=== PATIENT | female | born 1950 | race Two or more races ===

== ENCOUNTER 2024-11-06 14:26 | Inpatient (IN) | payer OTHER, MEDICAID ==
[~2024-11-06] VITALS: Ht 157.5 cm; Wt 75.2 kg
--- NOTE | 2024-11-06 14:54 | ED.PDOC ---
History of Present Illness HPI Comments 74 y.o female presents to the ED for a chief complaint of generalized weakness associated with dizziness and palpitation that started after running out of her HTN medication 1.5 months ago. Patient reports pressure has been low in the 90's systolic and states she has not been able to get an appointment with her PCP to refill nor discuss her symptoms. Patient denies any chest pain, fever, chills, leg swelling, nausea, vomiting, back pain. Time Seen by MD: 14:39 Reviewed Notes: Nurses Notes, Medications, Allergies Allergies: Coded Allergies: NO KNOWN ALLERGIES (Unverified , 11/06/24) Information Source: Patient Mode of Arrival: Ambulatory Severity: Moderate Timing: Months Duration: Since onset Medication Refill: Ran out of Medication, For: Hypertension Past Medical History PAST MEDICAL HISTORY: HTN Surgical History: Denies all surgeries COMPLAINT EVALUATION OFFICER History: No Pertinent COMPLAINT EVALUATION OFFICER History Family History Family History: Reviewed,noncontributory to illness Social History Smoker: Non-Smoker Alcohol: Denies ETOH Use Drugs: Denies Drug Use Lives In: Home Constitutional: reports: weakness; denies: chills, diaphoresis, fatigue, fever, malaise, sweats, others EENTM: denies: blurred vision, double vision, ear bleeding, ear discharge, ear drainage, ear pain, ear ringing, eye pain, eye redness, hearing loss, mouth pain, mouth swelling, nasal discharge, nose bleeding, nose congestion, nose pain, photophobia, tearing, throat pain, throat swelling, voice changes, others Respiratory: denies: cough, hemoptysis, orthopnea, SOB at rest, shortness of breath, SOB with excertion, stridor, wheezing, others Cardiovascular: reports: palpitations; denies: chest pain, dizzy spells, diaphoresis, Dyspnea on exertion, edema, irregular heart beat, left arm pain, lightheadedness, PND, syncope, others Gastrointestinal: denies: abdomen distended, abdominal pain, blood streaked bowels, constipated, diarrhea, dysphagia, difficulty swallowing, hematemesis, melena, nausea, poor appetite, poor fluid intake, rectal bleeding, rectal pain, vomiting, others Genitourinary: denies: abnormal vagina bleeding, burning, dyspareunia, dysuria, flank pain, frequency, hematuria, incontinence, pain, , vagina discharge, urgency, others Neurological: reports: dizziness; denies: fainting, headache, left sided numbness, left sided weakness, numbness, paresthesia, pre-existing deficit, rig ht sided numbness, right sided weakness, seizure, speech problems, tingling, tremors, weakness, others Musculoskeletal: denies: back pain, gout, joint pain, joint swelling, muscle pain, muscle stiffness, neck pain, others Integumetry: denies: bruises, change in color, change in hair/nails, dryness, laceration, lesions, lumps, rash, wounds, others Allergic/Immunocompromised: denies: Difficulty Healing, Frequent Infections, Hives, Itching, others Hematologic/Lymphatic: denies: anemia, blood clots, easy bleeding, easy bruising, swollen glands, others Endocrine: denies: excessive hunger, excessive sweating, excessive thirst, excessive urination, flushing, intolerance to cold, intolerance to heat, unexplained weight gain, unexplained weight loss, others Psychiatric: denies: anxiety, bipolar disorder, depression, hopeless, panic disorder, schizophrenia, sleepless, suicidal, others All Other Systems: Reviewed and Negative Physical Exam General Appearance: Moderate Distress HEENT: Normal ENT Inspection, Pharynx Normal, TMs Normal Neck: Full Range of Motion, Non-Tender, Normal, Normal Inspection Respiratory: Chest Non-Tender, Lungs Clear, No Accessory Muscle Use, No Respiratory Distress, Normal Breath Sounds Cardiovascular: No Edema, No JVD, No Murmur, No Gallop, Normal Peripheral Pulses, Regular Rate/Rhythm Breast Exam: Deferred Gastrointestinal: No Organomegaly, Non Tender, No Pulsatile Mass, Normal Bowel Sounds, Soft Genitalia: Deferred Pelvic: Deferred Rectal: Deferred Extremities: No calf tenderness, Normal capillary refill, Normal inspection, Normal range of motion, Non-tender, No pedal edema Musculoskeletal : Apperance: Normal Neurologic: Alert, vascular tech II-XII nml as Tested, No Motor Deficits, Normal Affect, Normal Mood, No Sensory Deficits Cerebellar Function: NOT DONE Reflexes: NOT DONE Skin: Dry, Normal Color, Warm Peripheral Pulses: 3+ Radial (R), 3+ Radial (L) Lymphatic: No Adenopathy Was a procedure done? Was a procedure done?: No EKG EKG : ST: Inf Differential Dx Considerations may include: Dehydration, Electrolyte Imbalance, Viral syndrome, Hypotension, Sinus tachycardia, New onset AFIB X-Ray, Labs, Meds, VS Vital Signs Date Time Temp Pulse Resp B/P (MAP) Pulse Ox O2 Delivery O2 Flow Rate FiO2 11/06/24 15:46 98.2 63 16 113/65 (81) 95 98.2 11/06/24 15:20 66 Lab Test 11/06/24 16:01 11/06/24 14:57 Range/Units White Blood Count 7.2 4.4-10.8 10^3/uL Red Blood Count 4.41 4.0-5.20 10^6/uL Hemoglobin 13.1 12.2-16.2 g/dL Hematocrit 39.9 36.0-46.0 % Mean Corpuscular Volume 90.4 80.0-100.0 fL Mean Corpuscular Hemoglobin 29.7 28.0-32.0 pg Mean Corpuscular Hemoglobin Concent 32.9 32.0-36.0 g/dL Red Cell Distribution Width 14.2 11.8-14.3 % Platelet Count 247 140-450 10^3/uL Mean Platelet Volume 8.2 6.9-10.8 fL Neutrophils (%) (Auto) 58.1 37.0-80.0 % Lymphocytes (%) (Auto) 29.7 10.0-50.0 % Monocytes (%) (Auto) 8.5 0.0-12.0 % Eosinophils (%) (Auto) 2.9 0.0-7.0 % Basophils (%) (Auto) 0.8 0.0-2.0 % Neutrophils # (Auto) 4.2 1.6-8.6 10 ^3/uL Lymphocytes # (Auto) 2.1 0.4-5.4 10 ^3/uL Monocytes # (Auto) 0.6 0-1.3 10 ^3/uL Eosinophils # (Auto) 0.2 0-0.8 10 ^3/uL Basophils # (Auto) 0.1 0-0.2 10 ^3/uL Nucleated Red Blood Cells 0.0 % Sodium Level Pending Potassium Level Pending Chloride Level Pending Carbon Dioxide Level Pending Anion Gap Pending Blood Urea Nitrogen Pending Creatinine Pending Glomerular Filtration Rate Calc Pending BUN/Creatinine Ratio Pending Serum Glucose Pending Calcium Level Pending Troponin I High Sensitivity Pending 36 *H </=34 ng/L Patient alert. Complaining of chest pain generalized weakness. Cardiac marker slightly elevated. Vitals stable. EKG does show minor changes. Echocardiogram. Cardiology consultation. She has risk factors for coronary artery disease. Was given aspirin. Was given nitro. Was given morphine. Was given Zofran. [facility] approved inpatient admission [id number]. Time of 1ST Reevaluation: 15:01 Reevaluation 1ST: Unchanged Patient Education/Counseling: Diagnosis, Treatment, Prognosis Family Education/Counseling: No Family Present Departure 1 Departure Time of Disposition: 16:21 Impression: Primary Impression: Chest pain of unknown etiology Disposition: ADMITTED INPATIENT Admit to: Med Surg Condition: Guarded Critical Care Note Critical Care Time?: No Stability Stability form required: No Heart Score Heart Score: Heart Score Response (Comments) Value History Slightly Suspicious 0 EKG Normal 0 Age >65 2 Risk Factors >3 or Hx ASHD 2 Troponin 1-2 x's Normal limit 1 Total 5 I personally scribed for JENY CUNHA MD ([email or web address]) on 11/06/24 at 14:54. Electronically submitted by Leah Medrano ([facility]). JENY CUNHA MD Nov 06, 2024 14:54
[2024-11-06 16:17] LABS: Basophils # (auto) 0.1 10 ^3/uL (0-0.2); Basophils % (auto) 0.8 % (0.0-2.0); Eosinophils # (auto) 0.2 10 ^3/uL (0-0.8); Eosinophils % (auto) 2.9 % (0.0-7.0); Hematocrit 39.9 % (36.0-46.0); Hemoglobin 13.1 g/dL (12.2-16.2); Lymphocytes # (auto) 2.1 10 ^3/uL (0.4-5.4); Lymphocytes % (auto) 29.7 % (10.0-50.0); Mean Corpuscular Hemoglobin 29.7 pg (28.0-32.0); Mean Corpuscular Hgb Conc. 32.9 g/dL (32.0-36.0); Mean Corpuscular Volume 90.4 fL (80.0-100.0); Monocytes # (auto) 0.6 10 ^3/uL (0-1.3); Monocytes % (auto) 8.5 % (0.0-12.0); Neutrophils # (auto) 4.2 10 ^3/uL (1.6-8.6); Neutrophils % (auto) 58.1 % (37.0-80.0); Platelet Count (auto) 247 10^3/uL (140-450); Red Blood Cells 4.41 10^6/uL (4.0-5.20); Red Cell Distribution Width 14.2 % (11.8-14.3); White Blood Cell 7.2 10^3/uL (4.4-10.8)
[2024-11-06 16:26] LABS: Chloride 107 mmol/L (98-107); Potassium 3.9 mmol/L (3.5-5.1); Sodium 143 mmol/L (136-145)
[2024-11-06 16:27] LABS: Anion Gap 7 (5-15); Carbon Dioxide 29 mmol/L (20-31)
[2024-11-06 16:32] LABS: BUN/Creatinine Ratio 15.8 (10.0-20.0); Blood Urea Nitrogen 16 mg/dL (9-23); Glucose 95 mg/dL (74-106)
[2024-11-06 16:35] LABS: Calcium 11.4 mg/dL (8.7-10.4)
[2024-11-06 17:44] LABS: Urine Bacteria None Seen /hpf (None Seen)
[2024-11-06] MEDS: ASPirin 325 MG TAB PO ONE (17:56)
[2024-11-06] MEDS: NITROGLYCERIN 0.4 MG SL TAB SL ONE (17:56)
[2024-11-06] MEDS: ONDANSETRON HCL 4 MG/2 ML VIAL IV ONE (17:57)
[2024-11-06] MEDS: MORPHINE SULFATE INJ 2 MG/ml SYRG IV ONE (17:57)
[2024-11-06 18:14] LABS: Urine Blood 1+ /uL (Negative); Urine Clarity Clear (Clear); Urine Color Yellow (Yellow); Urine Mucus FEW (None Seen); Urine Protein, UAD Negative (Negative); Urine Specific Gravity 1.027 (1.001-1.035); Urine Squamous Epithelial Cell FEW /hpf (<5); Urine Urobilinogen Normal (Negative); Urine WBC 32 /HPF (0-5); Urine pH 5.5 (5.0-9.0)
[2024-11-06] MEDS ORDERED: DOCUSATE SOD 100 MG CAP PO PRN (22:15)
[2024-11-06] MEDS ORDERED: HYDROcodone-ACET 5/325MG TAB PO PRN (22:15)
[2024-11-06] MEDS: cefTRIAXone 1GM/50ML D5W 50 ML IV ONE (22:15)
[2024-11-06] MEDS ORDERED: ONDANSETRON HCL 4 MG/2 ML VIAL IV PRN (22:15)
--- NOTE | 2024-11-06 23:24 | DVHHP2 ---
History of Present Illness Reason for Visit: Chest pain of unknown etiology History of Present Illness The patient is a 74-year-old female with past medical history of hypertension who presented to [facility] ED with complaint of generalized weakness. Patient reports she has been having generalized weakness associated with palpitation, dizziness, getting worse that prompted this visit. Patient reports pressure has been low in the 90's systolic and states she has not been able to get an appointment with her PCP to refill nor discuss her symptoms. Patient was seen and evaluated in the ED, laboratory data shows WBC 7.2, platelets 247, sodium 143, potassium 3.9, BUN 16, creatinine 1.01, glucose 95, troponin 39, calcium 11.4, blood pressure 134/69, heart rate 65, temperature 98.2 F, O2 saturation 96% room air. Urinalysis positive for urinary tract infection. Patient was started on IV antibiotic regimen Rocephin, please see medication orders section in the computer. On my assessment, patient denied chest pain at this moment, headache, no dizziness, no diaphoresis, no shortness of breaths, no nausea, no vomiting, fever, no chills. Patient was admitted for further evaluation and medical management. Past Medical History HTN Past Surgical History Denies all surgeries Family History Reviewed, noncontributory to the management of this case. Past Social History The patient lives at home, denies smoking, alcohol or illicit drugs abuse. Review of Systems Constitutional: Yes: Weakness; No: Fever, Chills, Sweats, Malaise, Other Eyes: No: Pain, Vision change, Conjunctivae inflammation, Eyelid inflammation, Other, Redness ENT: No: Ear pain, Ear discharge, Nose pain, Nose discharge, Nose congestion, Mouth pain, Mouth swelling, Throat pain, Throat swelling, Other Respiratory: No: Cough, Dry, Shortness of breath, SOB with excertion, Wheezing, Hemoptysis, Pleuritic Pain, Sputum, Wheezing, Other Cardiovascular: Palpitations; No: Chest Pain, Orthopnea, Paroxysmal Noc. Dyspnea, Edema, Lt Headedness, Other Gastrointestinal: No: Nausea, Vomiting, Abdominal Pain, Diarrhea, Constipation, Melena, Hematochezia, Other Genitourinary: No Dysuria, No Frequency, No Incontinence, No Hematuria, No Retention, No Other Musculoskeletal: No: other, neck pain, shoulder pain, arm pain, back pain, hand pain, leg pain, foot pain Skin: No: Rash, Lesions, Jaundice, Bruising, Other Neurological: Other (Dizziness); No: Weakness, Numbness, Incoordination, Change in speech, Confusion, Seizures Allergies: Coded Allergies: NO KNOWN ALLERGIES (Unverified , 11/06/24) Medications Current Medications Medications Dose Ordered Sig/Desi Route Start Time Stop Time Status Last Admin Dose Admin Aspirin 81 mg DAILY PO 11/07/24 10:00 Atorvastatin Calcium 10 mg HS PO 11/07/24 22:00 Ceftriaxone Sodium 50 ml @ 100 mls/hr DAILY@2100 IV 11/07/24 21:00 Sodium Chloride 10 ml Q8HR IV 11/07/24 06:00 Acetaminophen/ Hydrocodone Bitart 1 tab Q4HP PRN PO 11/06/24 22:15 Ondansetron HCl 4 mg Q4HP PRN IV 11/06/24 22:15 Docusate Sodium 100 mg BIDPRN PRN PO 11/06/24 22:15 Acetaminophen 650 mg Q6HP PRN PO 11/06/24 22:15 Exam Vital Signs Vital Signs Date Time Temp Pulse Resp B/P (MAP) Pulse Ox O2 Delivery O2 Flow Rate FiO2 11/06/24 22:51 98.1 58 16 130/63 (85) 98 98.1 11/06/24 18:04 Room Air General Appearance: Alert, Oriented X3, Cooperative, No acute distress HEENT: Atraumatic, PERRLA, EOMI, Mucous membr. moist/pink Respiratory: Normal air movement Cardiovascular: Regular rate, Normal S1, Normal S2, No murmurs Abdominal: Normal bowel sounds, Soft, No tenderness, No hepatospenomegaly, No masses Extremities: No clubbing, No cyanosis, No edema, Normal pulses, No tenderness/swelling Skin: No rashes, No breakdown, No significant lesion Neuro: Normal speech, Normal tone, Sensation intact, Cranial nerves 3-12 NL, Reflexes 2+, Other (Generalized weakness) Psych/Mental Status: Mental status NL, Mood NL Labs/Xrays Labs Test 11/06/24 18:13 11/06/24 17:13 11/06/24 16:01 Range/Units Troponin I High Sensitivity 39 *H </=34 ng/L Urine Color Yellow Yellow Urine Clarity Clear Clear Urine pH 5.5 5.0-9.0 Urine Specific [place] 1.027 1.001-1.035 Urine Protein Negative Negative Urine Ketones Negative Negative Urine Blood 1+ H Negative /uL Urine Nitrite Negative Negative Urine Bilirubin Negative Negative Urine Urobilinogen Normal Negative mg/dL Urine Leukocyte Esterase 2+ Negative /uL Urine RBC 8 0 - 4 /hpf Urine Microscopic WBC 32 H 0-5 /HPF Urine Squamous Epithelial Cells Few <5 /hpf Urine Bacteria None seen None Seen /hpf Urine Mucus Few None Seen Urine Glucose Normal Normal mg/dL White Blood Count 7.2 4.4-10.8 10^3/uL Red Blood Count 4.41 4.0-5.20 10^6/uL Hemoglobin 13.1 12.2-16.2 g/dL Hematocrit 39.9 36.0-46.0 % Mean Corpuscular Volume 90.4 80.0-100.0 fL Mean Corpuscular Hemoglobin 29.7 28.0-32.0 pg Mean Corpuscular Hemoglobin Concent 32.9 32.0-36.0 g/dL Red Cell Distribution Width 14.2 11.8-14.3 % Platelet Count 247 140-450 10^3/uL Mean Platelet Volume 8.2 6.9-10.8 fL Neutrophils (%) (Auto) 58.1 37.0-80.0 % Lymphocytes (%) (Auto) 29.7 10.0-50.0 % Monocytes (%) (Auto) 8.5 0.0-12.0 % Eosinophils (%) (Auto) 2.9 0.0-7.0 % Basophils (%) (Auto) 0.8 0.0-2.0 % Neutrophils # (Auto) 4.2 1.6-8.6 10 ^3/uL Lymphocytes # (Auto) 2.1 0.4-5.4 10 ^3/uL Monocytes # (Auto) 0.6 0-1.3 10 ^3/uL Eosinophils # (Auto) 0.2 0-0.8 10 ^3/uL Basophils # (Auto) 0.1 0-0.2 10 ^3/uL Nucleated Red Blood Cells 0.0 % Sodium Level 143 136-145 mmol/L Potassium Level 3.9 3.5-5.1 mmol/L Chloride Level 107 98-107 mmol/L Carbon Dioxide Level 29 20-31 mmol/L Anion Gap 7 5-15 Blood Urea Nitrogen 16 9-23 mg/dL Creatinine 1.01 0.550-1.02 mg/dL Glomerular Filtration Rate Calc 59 >90 mL/min BUN/Creatinine Ratio 15.8 10.0-20.0 Serum Glucose 95 74-106 mg/dL Calcium Level 11.4 H 8.7-10.4 mg/dL Assessment/Plan Assessment/Plan Chest pain of unknown etiology Urinary tract infection Generalized weakness Plan 1. Admit to telemetry unit 2. Breathing treatment 3. Pain control management 4. IV antibiotic management 5. Management of fluids and electrolytes 6. Consultation for hospitalist 7. Diagnostic test chest x-ray 8. DVT prophylaxis-on aspirin 9. Repeat labs CBC, CMP in a.m. 10. Home medication reviewed and reconciled 11. Continue with current medical management 12. Treatment plan discussed with patient and RN. Patient verbalized understanding. Plan discussed with: Patient, Other (RN) My Orders Orders - KATI NIEVES DNP Procedure Category Date Status Time Aspirin Tablet PHA 11/07/24 In Process 10:00 Atorvastatin (Lipitor) PHA 11/07/24 In Process 22:00 Urine Bacterial NABILA 11/06/24 In Process Culture 22:03 Ceftriaxone 1gm/50ml PHA 11/07/24 In Process D5w (Rocephin) 21:00 Allergies OG 11/06/24 In Process 22:03 Code Status CODE 11/06/24 Transmitted 22:03 Sodium Chloride Lock PHA 11/07/24 In Process (Saline Lock Ns) 06:00 Oxygen Per Hour RT 11/06/24 Transmitted 22:03 Hydrocodone-Acet PHA 11/06/24 In Process 5/325mg Tab ([facility] 22:15 Ondansetron Hcl PHA 11/06/24 In Process (Zofran) 22:15 Docusate Sodium PHA 11/06/24 In Process Capsule (Colace 22:15 Fall Risk Precautions OG 11/06/[address] 22:03 Complete Blood Count LAB 11/07/24 Verified 04:00 Comprehensive LAB 11/07/24 Verified Metabolic Panel 04:00 Cardiac DIET 11/07/24 Transmitted Diet-2gna,Lofat,Lochol Breakfast Condition: Serious OG 11/06/24 In Process 22:03 Acetaminophen Tablet PHA 11/06/24 In Process (Tylenol Tablet) 22:15 Bedrest With Bathroom OG 11/06/24 In Process Privileg 22:03 Sequential OG 11/06/24 In Process Compression Device Troponin-I Hs LAB 11/06/24 Logged 23:00 Problem List: (1) Chest pain of unknown etiology (2) Urinary tract infection (3) Generalized weakness Date of Service: Nov 06, 2024 Billing Provider: KATI NIEVES DNP Common Visit Codes: [id number] INP/OBS CARE (HIGH) KATI NIEVES DNP Nov 06, 2024 23:24
[2024-11-06] MEDS ORDERED: MORPHINE SULFATE INJ 2 MG/ml SYRG IV PRN (23:30)
[2024-11-06] MEDS ORDERED: NITROGLYCERIN 0.4 MG SL TAB SL PRN (23:30)
[2024-11-07] VITALS (9 sets, daily range): BP systolic 108–145; BP diastolic 45–55; PULSE 57–82; RESP 16–18; TEMP 97.4–97.9; O2SAT 94–100
[2024-11-07] MEDS ORDERED: METO25TA5 PO (04:23)
[2024-11-07] MEDS: SODIUM CHLOR 0.9% PF (SALINE LOCK) 10ML VIAL/SYR IV SCH (05:58)
[2024-11-07 06:50] LABS: Basophils # (auto) 0 10 ^3/uL (0-0.2); Basophils % (auto) 0.8 % (0.0-2.0); Eosinophils # (auto) 0.2 10 ^3/uL (0-0.8); Eosinophils % (auto) 3.3 % (0.0-7.0); Hematocrit 37.1 % (36.0-46.0); Hemoglobin 12.3 g/dL (12.2-16.2); Lymphocytes # (auto) 1.8 10 ^3/uL (0.4-5.4); Lymphocytes % (auto) 27.9 % (10.0-50.0); Mean Corpuscular Hemoglobin 29.9 pg (28.0-32.0); Mean Corpuscular Hgb Conc. 33.2 g/dL (32.0-36.0); Monocytes # (auto) 0.5 10 ^3/uL (0-1.3); Monocytes % (auto) 7.9 % (0.0-12.0); Neutrophils # (auto) 3.9 10 ^3/uL (1.6-8.6); Neutrophils % (auto) 60.1 % (37.0-80.0); Platelet Count (auto) 233 10^3/uL (140-450); Red Blood Cells 4.12 10^6/uL (4.0-5.20); Red Cell Distribution Width 14.1 % (11.8-14.3); White Blood Cell 6.5 10^3/uL (4.4-10.8)
[2024-11-07 07:17] LABS: Alanine Aminotransferase 16 U/L (7-40); Albumin 3.9 g/dL (3.2-4.8); Alkaline Phosphatase 82 U/L (46-116); Anion Gap 7 (5-15); Aspartate Aminotransferase 16 U/L (13-40); BUN/Creatinine Ratio 17.8 (10.0-20.0); Bilirubin, Total 0.4 mg/dL (0.2-1.0); Blood Urea Nitrogen 16 mg/dL (9-23); Carbon Dioxide 26 mmol/L (20-31); Glucose 102 mg/dL (74-106); Potassium 3.8 mmol/L (3.5-5.1); Sodium 144 mmol/L (136-145); Total Protein 6.4 g/dL (5.7-8.2)
[2024-11-07 07:22] LABS: Calcium 11.2 mg/dL (8.7-10.4); Chloride 111 mmol/L (98-107)
[2024-11-07] MEDS: ASPirin 81 mg TAB PO SCH (08:31)
--- NOTE | 2024-11-07 09:52 | ECG ---
[facility] Test Date: 2024-11-06 Test Time: 15:20:03 Pat Name: ZAIRA GARCIADepartment: ER [facility] Gender: F Welfare Administrator: DOTTY : 1950 Requested By: JENY CUNHA Order Number: [id number] Reading MD: Cachorro Clemente Measurements Intervals [place] Rate: 66 P: 33 ND: 144 QRS: -13 QRSD: 93 T: 8 QT: 380 QTc: 399 Interpretive Statements Sinus rhythm Borderline T abnormalities, anterior leads Baseline wander in lead(s) I,II,aVR,aVL,aVF,V1,V3,V4,V5 Electronically Signed On 11-07-2024 12:37:53 PDT by Cachorro Clemente Please click the below link to view image of tracing.
[2024-11-07] MEDS: ACETAMINOPHEN 325 MG TAB PO PRN (10:09)
--- NOTE | 2024-11-07 15:09 | DVHCONRES ---
Date Seen: Nov 07, 2024 Resident Creating Document: LENCHO REDDY RESIDENT Referring Physician Dr. Henson Reason for Consultation Chest pain and elevated troponin History of Present Illness Patient is a 74-year-old female with past medical history of hypertension and dyslipidemia who comes in for dizziness and palpitations. According to the patient, she has been having dizziness and palpitations for the last couple of months, she was discharged 4 days ago from the ER. On our visit with the PCP she was directed to go to the ER due to experiencing palpitations, chest pain and dizziness. Of note, previously patient was on lisinopril and metoprolol however, patient notes that for the last 2 days she has not taken any antihypertensive medications however she continues to feel palpitations and dizziness. Per patient, left heart catheterization was performed 2 years ago which was largely unremarkable with her [facility] doctor. On review of systems patient is complaining of palpitation, shortness of breath, stress and fatigue. Troponins were 38, 39 and 40. And EKG showed normal sinus rhythm. Past Medical History hypertension and dyslipidemia Past Surgical History Right arm surgery, section Family History: Arthritis G8 MOTHER, , Age: 89 Social History Smoking: Denies Alcohol: Denies Drugs: Denies Allergies: Coded Allergies: NO KNOWN ALLERGIES (Unverified , 11/06/24) Home Meds Reported Medications Metoprolol Tartrate (Metoprolol Tartrate) 25 Mg Tab, 1 TAB PO BID, #180 TAB 1 Refill 11/07/24 Current Medications Current Medications Medications (Trade) Dose Ordered Sig/Desi Route PRN Reason Start Time Stop Time Status Last Admin Aspirin 81 mg DAILY PO 11/07/24 10:00 11/07/24 08:31 Atorvastatin Calcium (Lipitor) 10 mg HS PO 11/07/24 22:00 Ceftriaxone Sodium 50 ml @ 100 mls/hr DAILY@2100 IV 11/07/24 21:00 Sodium Chloride (Saline Lock Ns) 10 ml Q8HR IV 11/07/24 06:00 11/07/24 08:30 Acetaminophen/ Hydrocodone Bitart ([place] 5/325MG Tab) 1 tab Q4HP PRN PO MODERATE PAIN (4-6 PAIN SCALE) 11/06/24 22:15 Ondansetron HCl (Zofran) 4 mg Q4HP PRN IV NAUSEA / VOMITING 11/06/24 22:15 Docusate Sodium (Colace Capsule) 100 mg BIDPRN PRN PO FOR CONSTIPATION 11/06/24 22:15 Acetaminophen (Tylenol Tablet) 650 mg Q6HP PRN PO PAIN SCALE 1-3 OR TEMP>100.4 11/06/24 22:15 11/07/24 10:09 Nitroglycerin (Ntrostat Sublingual) 0.4 mg Q5MINP PRN SL FOR CHEST PAIN 11/06/24 23:30 Morphine Sulfate 2 mg Q30M PRN IV FOR CHEST PAIN 11/06/24 23:30 Review of Systems Patient seen and examined at bedside. Patient is alert and oriented to time, place person and responding to all questions. General: Reports feeling stress, fatigue Eyes: No Pain, No Vision change, No Conjunctivae inflammation, No Eyelid inflammation, No Other, No Redness ENT: No Ear pain, No Ear discharge, No Nose pain, No Nose discharge, No Nose congestion, No Mouth pain, No Mouth swelling, No Throat pain, No Throat swelling, No Other Cardiovascular: No Chest Pain, Palpitations, No Orthopnea, No Paroxysmal No Dyspnea, No Edema, No Lt Headedness, No Other Respiratory: No Cough, No Dry, Shortness of breath, No SOB with exertion, No Wheezing, No Hemoptysis, No Pleuritic Pain, No Sputum, No Other Gastrointestinal: No Nausea, No Vomiting, No Abdominal Pain, No Diarrhea, No Constipation, No Melena, No Hematochezia, No Other Genitourinary: No Dysuria, No Frequency, No Incontinence, No Hematuria, No Retention, No Other Musculoskeletal: No other, No neck pain, No shoulder pain, No arm pain, No back pain, No hand pain, No leg pain, No foot pain Skin: No Rash, No Lesions, No Jaundice, No Bruising, No Other Vital Signs Vital Signs Date Time Temp Pulse Resp B/P (MAP) Pulse Ox O2 Delivery O2 Flow Rate FiO2 11/07/24 13:00 97.7 57 17 108/55 (72) 96 97.7 11/07/24 08:00 Room Air* 0 21 Physical Exam General Appearance: Cooperative. Well developed. Well nourished. NAD. Dry mucous membrane Head Exam: Normal inspection Neck Exam: Normal inspection. Non-tender. Normal alignment Pulmonary/Respiratory: Chest non-tender. Clear bilateral breath sounds, no crackles, no wheezing. Cardiovascular/Chest: Regular rate and rhythm. No murmurs. No JVD. Lower extremities: 1+ lower extremity edema Neuro/Mental Status: A&O x4. Coherent. Thoughts/Psych: Normal thought pattern. Appropriate mood and affect. Good judgement and insight Skin Exam: Normal inspection. Normal color. Warm. Dry Labs/Diagnostic Data Labs Test 11/07/24 06:22 11/06/24 23:08 11/06/24 17:13 Range/Units White Blood Count 6.5 4.4-10.8 10^3/uL Red Blood Count 4.12 4.0-5.20 10^6/uL Hemoglobin 12.3 12.2-16.2 g/dL Hematocrit 37.1 36.0-46.0 % Mean Corpuscular Volume 90.0 80.0-100.0 fL Mean Corpuscular Hemoglobin 29.9 28.0-32.0 pg Mean Corpuscular Hemoglobin Concent 33.2 32.0-36.0 g/dL Red Cell Distribution Width 14.1 11.8-14.3 % Platelet Count 233 140-450 10^3/uL Mean Platelet Volume 8.3 6.9-10.8 fL Neutrophils (%) (Auto) 60.1 37.0-80.0 % Lymphocytes (%) (Auto) 27.9 10.0-50.0 % Monocytes (%) (Auto) 7.9 0.0-12.0 % Eosinophils (%) (Auto) 3.3 0.0-7.0 % Basophils (%) (Auto) 0.8 0.0-2.0 % Neutrophils # (Auto) 3.9 1.6-8.6 10 ^3/uL Lymphocytes # (Auto) 1.8 0.4-5.4 10 ^3/uL Monocytes # (Auto) 0.5 0-1.3 10 ^3/uL Eosinophils # (Auto) 0.2 0-0.8 10 ^3/uL Basophils # (Auto) 0 0-0.2 10 ^3/uL Nucleated Red Blood Cells 0.0 % Sodium Level 144 136-145 mmol/L Potassium Level 3.8 3.5-5.1 mmol/L Chloride Level 111 H 98-107 mmol/L Carbon Dioxide Level 26 20-31 mmol/L Anion Gap 7 5-15 Blood Urea Nitrogen 16 9-23 mg/dL Creatinine 0.90 0.550-1.02 mg/dL Glomerular Filtration Rate Calc 68 >90 mL/min BUN/Creatinine Ratio 17.8 10.0-20.0 Serum Glucose 102 74-106 mg/dL Calcium Level 11.2 H 8.7-10.4 mg/dL Total Bilirubin 0.4 0.2-1.0 mg/dL Aspartate Amino Transferase (AST) 16 13-40 U/L Alanine Aminotransferase (ALT) 16 7-40 U/L Alkaline Phosphatase 82 46-116 U/L Total Protein 6.4 5.7-8.2 g/dL Albumin 3.9 3.2-4.8 g/dL Troponin I High Sensitivity 40 *H </=34 ng/L Urine Color Yellow Yellow Urine Clarity Clear Clear Urine pH 5.5 5.0-9.0 Urine Specific [place] 1.027 1.001-1.035 Urine Protein Negative Negative Urine Ketones Negative Negative Urine Blood 1+ H Negative /uL Urine Nitrite Negative Negative Urine Bilirubin Negative Negative Urine Urobilinogen Normal Negative mg/dL Urine Leukocyte Esterase 2+ Negative /uL Urine RBC 8 0 - 4 /hpf Urine Microscopic WBC 32 H 0-5 /HPF Urine Squamous Epithelial Cells Few <5 /hpf Urine Bacteria None seen None Seen /hpf Urine Mucus Few None Seen Urine Glucose Normal Normal mg/dL Assessment NSTEMI type 2 possibly from dehydration Acute complicated UTI Panic disorder versus anxiety Plan: Orthostatic vital signs Consider chronic vertigo Consider Neurology consult Left heart catheterization via radial access performed 2 years ago which per patient was largely unremarkable, done at [facility]. Hold antihypertensives Monitor blood pressure Rest of the management as per hospitalist Thank you so much for the opportunity to consult on your patient. Cardiology team will sign off. In case of any questions or concerns please feel free to reach out. Plan discussed with Dr. Woods Plan discussed with: Patient, Other (RN) Visit Coding Cardiology RES Date of Service: Nov 07, 2024 Billing Provider: JOSE FRANCISCO WOODS MD Cardiology Common Codes: [id number] INP/OBS CARE (High) LENCHO REDDY RESIDENT Nov 07, 2024 15:09
[2024-11-07 15:31] LABS: Triglycerides 115 mg/dL (< 150)
[2024-11-07 15:33] LABS: HDL Cholesterol 53 mg/dL (40-59)
[2024-11-07 15:34] LABS: Cholesterol 257 mg/dL (< 200); LDL Cholesterol 189 mg/dL (< 100)
--- NOTE | 2024-11-07 18:06 | DVHPN2 ---
Subjective in bed with some chest pain Reviewed: H&P, Labs Changes from previous H/P or p: No Changes Eyes: No Pain, No Vision change, No Conjunctivae inflammation, No Eyelid inflammation, No Other, No Redness ENT: No Ear pain, No Ear discharge, No Nose pain, No Nose discharge, No Nose congestion, No Mouth pain, No Mouth swelling, No Throat pain, No Throat swelling, No Other Cardiovascular: No Chest Pain; Palpitations; No Orthopnea, No Paroxysmal Noc. Dyspnea, No Edema, No Lt Headedness, No Other Respiratory: No Cough, No Dry, No Shortness of breath, No SOB with excertion, No Wheezing, No Hemoptysis, No Pleuritic Pain, No Sputum, No Other Gastrointestinal: No Nausea, No Vomiting, No Abdominal Pain, No Diarrhea, No Constipation, No Melena, No Hematochezia, No Other Genitourinary: No Dysuria, No Frequency, No Incontinence, No Hematuria, No Retention, No Other Musculoskeletal: No other, No neck pain, No shoulder pain, No arm pain, No back pain, No hand pain, No leg pain, No foot pain Skin: No Rash, No Lesions, No Jaundice, No Bruising, No Other Objective Vitals Vital Signs Date Time Temp Pulse Resp B/P (MAP) Pulse Ox O2 Delivery O2 Flow Rate FiO2 11/07/24 16:49 97.7 74 17 116/52 (73) 98 97.7 11/07/24 08:00 Room Air* 0 21 Intake/Output Intake and Output 11/07/24 07:00 Intake Total 0 ml Balance 0 ml Intake Oral 0 ml General Appearance: Alert, Oriented X3 Lungs: Clear to auscultation Cardiovascular: Regular rate, Normal S1, Normal S2 Medications Current Medications Medications Dose Ordered Sig/Desi Route Start Time Stop Time Status Last Admin Dose Admin Aspirin 81 mg DAILY PO 11/07/24 10:00 11/07/24 08:31 81 MG Atorvastatin Calcium 10 mg HS PO 11/07/24 22:00 Ceftriaxone Sodium 50 ml @ 100 mls/hr DAILY@2100 IV 11/07/24 21:00 Sodium Chloride 10 ml Q8HR IV 11/07/24 06:00 11/07/24 08:30 10 ML Acetaminophen/ Hydrocodone Bitart 1 tab Q4HP PRN PO 11/06/24 22:15 Ondansetron HCl 4 mg Q4HP PRN IV 11/06/24 22:15 Docusate Sodium 100 mg BIDPRN PRN PO 11/06/24 22:15 Acetaminophen 650 mg Q6HP PRN PO 11/06/24 22:15 11/07/24 10:09 650 MG Nitroglycerin 0.4 mg Q5MINP PRN SL 11/06/24 23:30 Morphine Sulfate 2 mg Q30M PRN IV 11/06/24 23:30 Laboratory Results Laboratory Tests 11/07/24 06:22 Chemistry Test 11/07/24 06:22 Albumin 3.9 g/dL (3.2-4.8) Calcium Level 11.2 mg/dL (8.7-10.4) H Total Protein 6.4 g/dL (5.7-8.2) Lipid panel Test 11/07/24 06:22 Cholesterol Level 257 mg/dL (< 200) H HDL Cholesterol 53 mg/dL (40-59) Triglycerides Level 115 mg/dL (< 150) Cardiac Markers Test 11/07/24 06:22 B-Type Natriuretic Peptide 33.95 pg/mL (0-100) LFT Test 11/07/24 06:22 Alanine Aminotransferase (ALT) 16 U/L (7-40) Alkaline Phosphatase 82 U/L (46-116) Aspartate Amino Transferase (AST) 16 U/L (13-40) Total Bilirubin 0.4 mg/dL (0.2-1.0) HgA1c, TSH Test 11/07/24 06:22 Hemoglobin A1c 5.4 % A1C (<5.7) Urinalysis Test 11/06/24 17:13 Urine Color Yellow (Yellow) Urine Clarity Clear (Clear) Urine pH 5.5 (5.0-9.0) Urine Specific [place] 1.027 (1.001-1.035) Urine Protein Negative (Negative) Urine Ketones Negative (Negative) Urine Blood 1+ /uL (Negative) H Urine Nitrite Negative (Negative) Urine Bilirubin Negative (Negative) Urine Urobilinogen Normal mg/dL (Negative) Urine Leukocyte Esterase 2+ /uL (Negative) Urine RBC 8 /hpf (0 - 4) Urine Microscopic WBC 32 /HPF (0-5) H Urine Squamous Epithelial Cells Few /hpf (<5) Urine Bacteria None seen /hpf (None Seen) Urine Mucus Few (None Seen) Urine Glucose Normal mg/dL (Normal) Assessment/Plan Assessment/Plan #NSTEMI Elevated troponins aspirin and statin consult cardiology #UTI IV ceftriaxone Plan discussed with: Patient My Orders Orders - ESTELITA LEE MD Procedure Category Date Status Time * Cardiology Consult CONS 11/07/24 Transmitted 11:28 Date of Service: Nov 07, 2024 Billing Provider: ESTELITA LEE MD Common Visit Codes: [id number] INP/OBS CARE(HIGH) ESTELITA LEE MD Nov 07, 2024 18:06
--- NOTE | 2024-11-07 18:51 | DVH ---
CHEST TWO VIEWS REASON FOR EXAM: Chest congestion COMPARISON: None TECHNIQUE: PA and lateral views of the chest are obtained. FINDINGS: The cardiomediastinal silhouette is within normal limits for size. There is no focal airsp kimberly disease. There is no pleural effusion. No acute osseous abnormality is identified. There is multi level degenerative change with bulky osteophytosis throughout the visualized spine. There is right hu meral neck fixation hardware. There is a right shoulder subacromial spur. IMPRESSION: No radiographic evidence of acute cardiopulmonary process.
[2024-11-07] MEDS: cefTRIAXone 1GM/50ML D5W 50 ML IV SCH (20:40)
[2024-11-07] MEDS: ATORVASTATIN 20 MG TAB PO SCH (21:52)
--- NOTE | 2024-11-07 23:44 | DVHINCON2 ---
Date Seen: Nov 07, [address] Henson Reason for Consultation Chest pain and elevated troponin History of Present Illness This is a 74-year-old female with past medical history of hypertension and dyslipidemia who presented to the ED with complaints of dizziness and heart palpitations. According to the patient, she has been having dizziness and palpitations for the last couple of months, she was discharged 4 days ago from the ED. On visit with the PCP she was directed to go to the ED due to experiencing heart palpitations, chest pain and dizziness. Of note, previously patient was on lisinopril and metoprolol however, patient notes that for the last 2 days she has not taken any antihypertensive medications however she continues to feel heart palpitations and dizziness. Per patient, left heart catheterization was performed 2 years ago which was largely unremarkable with her [place] doctor. On review of systems patient is complaining of palpitation, shortness of breath, stress and fatigue. Troponins were 38, 39 and 40. EKG showed normal sinus rhythm. Chest x-ray showed NAD. Patient was admitted to the hospital. I am asked to consult on this patient. Past Medical History hypertension and dyslipidemia Past Surgical History Right arm surgery, section Family History: Arthritis G8 MOTHER, , Age: 89 Allergies: Coded Allergies: NO KNOWN ALLERGIES (Unverified , 11/06/24) Home Meds Reported Medications Metoprolol Tartrate (Metoprolol Tartrate) 25 Mg Tab, 1 TAB PO BID, #180 TAB 1 Refill 11/07/24 Current Medications Current Medications Medications (Trade) Dose Ordered Sig/Desi Route PRN Reason Start Time Stop Time Status Last Admin Aspirin 81 mg DAILY PO 11/07/24 10:00 11/07/24 08:31 Atorvastatin Calcium (Lipitor) 10 mg HS PO 11/07/24 22:00 Ceftriaxone Sodium 50 ml @ 100 mls/hr DAILY@2100 IV 11/07/24 21:00 11/07/24 20:40 Sodium Chloride (Saline Lock Ns) 10 ml Q8HR IV 11/07/24 06:00 11/07/24 08:30 Acetaminophen/ Hydrocodone Bitart (Lynch 5/325MG Tab) 1 tab Q4HP PRN PO MODERATE PAIN (4-6 PAIN SCALE) 11/06/24 22:15 Ondansetron HCl (Zofran) 4 mg Q4HP PRN IV NAUSEA / VOMITING 11/06/24 22:15 Docusate Sodium (Colace Capsule) 100 mg BIDPRN PRN PO FOR CONSTIPATION 11/06/24 22:15 Acetaminophen (Tylenol Tablet) 650 mg Q6HP PRN PO PAIN SCALE 1-3 OR TEMP>100.4 11/06/24 22:15 11/07/24 20:38 Nitroglycerin (Ntrostat Sublingual) 0.4 mg Q5MINP PRN SL FOR CHEST PAIN 11/06/24 23:30 Morphine Sulfate 2 mg Q30M PRN IV FOR CHEST PAIN 11/06/24 23:30 Review of Systems Patient seen and examined at bedside. Patient is alert and oriented to time, place person and responding to all questions. General: Reports feeling stress, fatigue Eyes: No Pain, No Vision change, No Conjunctivae inflammation, No Eyelid infla mmation, No Other, No Redness ENT: No Ear pain, No Ear discharge, No Nose pain, No Nose discharge, No Nose congestion, No Mouth pain, No Mouth swelling, No Throat pain, No Throat swelling, No Other Cardiovascular: No Chest Pain, Palpitations, No Orthopnea, No Paroxysmal No Dyspnea, No Edema, No Lt Headedness, No Other Respiratory: No Cough, No Dry, Shortness of breath, No SOB with exertion, No Wheezing, No Hemoptysis, No Pleuritic Pain, No Sputum, No Other Gastrointestinal: No Nausea, No Vomiting, No Abdominal Pain, No Diarrhea, No Constipation, No Melena, No Hematochezia, No Other Genitourinary: No Dysuria, No Frequency, No Incontinence, No Hematuria, No Retention, No Other Musculoskeletal: No other, No neck pain, No shoulder pain, No arm pain, No back pain, No hand pain, No leg pain, No foot pain Skin: No Rash, No Lesions, No Jaundice, No Bruising, No Other Vital Signs Vital Signs Date Time Temp Pulse Resp B/P (MAP) Pulse Ox O2 Delivery O2 Flow Rate FiO2 11/07/24 20:00 62 Room Air* 0 21 11/07/24 16:49 97.7 17 116/52 (73) 98 97.7 Physical Exam GENERAL: Alert and oriented x 3. No acute distress. EYES: PERRL, EOMI. Anicteric. HENT: Dry mucous membranes. LUNGS: Clear to auscultation bilaterally. CARDIOVASCULAR: Regular rate and rhythm. ABDOMEN: Soft, nontender and nondistended. EXTREMITIES: 1+ pitting edema. NEUROLOGIC: No focal neurological deficits. SKIN: Warm, dry. Labs/Diagnostic Data Labs Test 11/07/24 06:22 11/06/24 23:08 11/06/24 17:13 Range/Units White Blood Count 6.5 4.4-10.8 10^3/uL Red Blood Count 4.12 4.0-5.20 10^6/uL Hemoglobin 12.3 12.2-16.2 g/dL Hematocrit 37.1 36.0-46.0 % Mean Corpuscular Volume 90.0 80.0-100.0 fL Mean Corpuscular Hemoglobin 29.9 28.0-32.0 pg Mean Corpuscular Hemoglobin Concent 33.2 32.0-36.0 g/dL Red Cell Distribution Width 14.1 11.8-14.3 % Platelet Count 233 140-450 10^3/uL Mean Platelet Volume 8.3 6.9-10.8 fL Neutrophils (%) (Auto) 60.1 37.0-80.0 % Lymphocytes (%) (Auto) 27.9 10.0-50.0 % Monocytes (%) (Auto) 7.9 0.0-12.0 % Eosinophils (%) (Auto) 3.3 0.0-7.0 % Basophils (%) (Auto) 0.8 0.0-2.0 % Neutrophils # (Auto) 3.9 1.6-8.6 10 ^3/uL Lymphocytes # (Auto) 1.8 0.4-5.4 10 ^3/uL Monocytes # (Auto) 0.5 0-1.3 10 ^3/uL Eosinophils # (Auto) 0.2 0-0.8 10 ^3/uL Basophils # (Auto) 0 0-0.2 10 ^3/uL Nucleated Red Blood Cells 0.0 % Sodium Level 144 136-145 mmol/L Potassium Level 3.8 3.5-5.1 mmol/L Chloride Level 111 H 98-107 mmol/L Carbon Dioxide Level 26 20-31 mmol/L Anion Gap 7 5-15 Blood Urea Nitrogen 16 9-23 mg/dL Creatinine 0.90 0.550-1.02 mg/dL Glomerular Filtration Rate Calc 68 >90 mL/min BUN/Creatinine Ratio 17.8 10.0-20.0 Serum Glucose 102 74-106 mg/dL Hemoglobin A1c 5.4 <5.7 % A1C Calcium Level 11.2 H 8.7-10.4 mg/dL Total Bilirubin 0.4 0.2-1.0 mg/dL Aspartate Amino Transferase (AST) 16 13-40 U/L Alanine Aminotransferase (ALT) 16 7-40 U/L Alkaline Phosphatase 82 46-116 U/L B-Type Natriuretic Peptide 33.95 0-100 pg/mL Total Protein 6.4 5.7-8.2 g/dL Albumin 3.9 3.2-4.8 g/dL Triglycerides Level 115 < 150 mg/dL Cholesterol Level 257 H < 200 mg/dL LDL Cholesterol 189 H < 100 mg/dL HDL Cholesterol 53 40-59 mg/dL Troponin I High Sensitivity 40 *H </=34 ng/L Urine Color Yellow Yellow Urine Clarity Clear Clear Urine pH 5.5 5.0-9.0 Urine Specific [place] 1.027 1.001-1.035 Urine Protein Negative Negative Urine Ketones Negative Negative Urine Blood 1+ H Negative /uL Urine Nitrite Negative Negative Urine Bilirubin Negative Negative Urine Urobilinogen Normal Negative mg/dL Urine Leukocyte Esterase 2+ Negative /uL Urine RBC 8 0 - 4 /hpf Urine Microscopic WBC 32 H 0-5 /HPF Urine Squamous Epithelial Cells Few <5 /hpf Urine Bacteria None seen None Seen /hpf Urine Mucus Few None Seen Urine Glucose Normal Normal mg/dL Assessment NSTEMI type 2 possibly from dehydration. Acute complicated UTI. Panic disorder versus anxiety. Plan/Recommendation I agree with your ongoing assessment and care of plan. Patient has been seen by Lizette Min Resident, we have discussed the plan with the patient Orthostatic vital signs. Consider chronic vertigo. Consider Neurology consult. Left heart catheterization via radial access performed 2 years ago which per patient was largely unremarkable, done at [place]. Hold antihypertensives. Monitor blood pressure. Rest of the management as per hospitalist. Additional plan as per the hospital course. Plan discussed with: Patient NYHA Physical activity limitations: NA Date of Service: Nov 07, 2024 Billing Provider: JOSE FRANCISCO WOODS MD Cardiology Common Codes: [id number] INP/OBS CARE (High) JOSE FRANCISCO WODOS MD Nov 07, 2024 21:43
[2024-11-08 01:00] VITALS: BP 125/70; PULSE 64; RESP 17; TEMP 97.9; O2SAT 98
[2024-11-08 05:00] VITALS: BP 118/58; PULSE 54; RESP 17; TEMP 97.9; O2SAT 98
[2024-11-08 08:00] VITALS: PULSE 56; PULSE 65; PULSE 72
[2024-11-08 09:00] VITALS: BP 125/53; PULSE 84; RESP 18; TEMP 97.9; O2SAT 95
[2024-11-08 13:00] VITALS: BP 132/44; PULSE 61; RESP 18; TEMP 97.7; O2SAT 96
[2024-11-08] MEDS ORDERED: ASPI-325 PO (13:07)
[2024-11-08] MEDS ORDERED: ATOR-507 PO (13:07)
[2024-11-08] MEDS ORDERED: CIP500T GT (13:08)
[2024-11-08 13:36] VITALS: TEMP 36.5
--- NOTE | 2024-11-08 23:42 | DVHPN2 ---
Progress Note - Dictate Date Seen: Nov 08, 2024 Medical Necessity Reason Pt with a Central, PICC or Fol: No Subjective Patient was seen and evaluated in follow up. Patient has no new complaints at this time. Patient denies any cardiac symptoms. Patient is cardiac stable for discharge. Telemetry reviewed. vital signs Vital Sign Date Time Temp Pulse Resp B/P (MAP) Pulse Ox O2 Delivery O2 Flow Rate FiO2 11/08/24 13:36 36.5 11/08/24 13:00 61 18 132/44 (73) 96 11/08/24 08:00 Room Air* 0 21 Total Intake and Output 11/07/24 11/07/24 11/08/24 15:00 23:00 07:00 Intake Total 700 ml 650 ml Balance 700 ml 650 ml objective GENERAL: Alert and oriented x 3. No acute distress. EYES: PERRL, EOMI. Anicteric. HENT: Dry mucous membranes. LUNGS: Clear to auscultation bilaterally. CARDIOVASCULAR: Regular rate and rhythm. ABDOMEN: Soft, nontender and nondistended. EXTREMITIES: 1+ pitting edema. NEUROLOGIC: No focal neurological deficits. SKIN: Warm, dry. laboratory and microbiology Laboratory Tests 11/07/24 06:22 Test 11/07/24 06:22 Range/Units Serum Glucose 102 74-106 mg/dL Problem List NSTEMI type 2 possibly from dehydration. Acute complicated UTI. Panic disorder versus anxiety. Assessment/Plan Continued all current supportive medical care. Aspirin, Lipitor. IV antibiotics as ordered. Nitro SL. Morphine and Sharon for pain management. Additional plan as per the hospital course. A total of 25 minutes was spent reviewing the patient record, examining the patient, making a diagnostic and therapeutic plan, discussing this plan with medical personnel, following up on diagnostic studies and following the patient for clinical stability excluding any and all procedures. At least 50% of this time was spent in direct, [id number] contact. Plan discussed with: Patient JOSE FRANCISCO WOODS MD Nov 08, 2024 16:58
== END 2024-11-08 14:10 | disposition home or self-care (01) | DRG 640 ==
LOC: ER 14:26 → OVERFLOW 23:23 → TELE-WESTW 23:24
PROVIDERS: ADMIT Hospitalist; ATTEND Hospitalist
DX: E86.0 Dehydration (principal); I21.A1 Myocardial infarction type 2; N30.00 Acute cystitis without hematuria; I10 Essential (primary) hypertension; E78.5 Hyperlipidemia, unspecified; F41.0 Panic disorder [episodic paroxysmal anxiety]; Z82.61 Family history of arthritis
CPT/HCPCS: 36415; 71046; 80048; 80053; 80061; 81001; 83036; 83880; 84484; 85025; 87086; 93005; G0378